=== PATIENT | male | born 1985 | race Caucasian/White ===

== ENCOUNTER 2017-08-20 13:40 | Emergency (ER) | payer BC ==
[~2017-08-20] VITALS: Ht 177.8 cm; Wt 179.8 kg
[~2017-08-20 13:40] MED LIST: NOHOMEMEDS; PROTONIX40 MG PO
[2017-08-20 14:09] LABS: HEMATOCRIT 41.2 % (38.0-50.0); HEMOGLOBIN 14.1 G/DL (12.5-16.6); MCH 29.9 PG (29.0-34.0); MCHC 34.2 G/DL (30.0-36.0); MCV 87.5 FL (86-99); PLATELET COUNT 237 K/uL (156-360); RBC DIS.WIDTH-SD 38.6 % (39-53); RED BLOOD COUNT 4.71 M/uL (4.00-5.50); WHITE BLOOD COUNT 8.6 K/uL (4.1-10.2)
[2017-08-20 14:20] LABS: CHLORIDE 104 mEq/L (99-109); POTASSIUM 4.1 mEq/L (3.7-5.4); SODIUM 139 mEq/L (136-147)
[2017-08-20 14:22] LABS: GLUCOSE 117 mg/dL (70-99)
[2017-08-20 14:26] LABS: CREATININE 0.9 mg/dL (0.6-1.3); GFR ESTIMATE (CALCULATED) > 59 mL/min/ (58.99-99999); UREA NITROGEN (BUN) 19 mg/dL (9-23)
[2017-08-20 14:30] LABS: TROP-I INTERPRETATION NEGATIVE; TROPONIN-I < 0.01 ng/mL (0.0-0.30)
[2017-08-20 16:41] LABS: ALBUMIN 4.2 g/dL (3.2-4.8)
[2017-08-20 16:44] LABS: TOTAL PROTEIN 6.9 g/dL (6.4-8.3)
[2017-08-20 16:46] LABS: TOTAL BILIRUBIN 0.4 mg/dL (0.0-1.0)
[2017-08-20 16:47] LABS: ALKALINE PHOSPHATASE 79 IU/L (3-129)
[2017-08-20 16:49] LABS: AST (GOT) 19 IU/L (2-34); DIRECT BILIRUBIN 0.2 mg/dL (0.0-0.3)
[2017-08-20 16:50] LABS: ALT (GPT) 32 IU/L (3-49); LIPASE 14 U/L (1.0-51.0)
[2017-08-20 18:11] LABS: TROP-I INTERPRETATION NEGATIVE; TROPONIN-I < 0.01 ng/mL (0.0-0.30)
[2017-08-20 18:29] VITALS: BP 128/88
== END 2017-08-20 18:30 | disposition home or self-care (01) ==
LOC: EME 13:40 → RME 13:40
PROVIDERS: Nurse Practitioner Family
DX: R07.9 Chest pain, unspecified (principal); K21.9 Gastro-esophageal reflux disease without esophagitis; I10 Essential (primary) hypertension; E66.01 Morbid (severe) obesity due to excess calories; Z68.43 Body mass index [BMI] 50.0-59.9, adult; G47.30 Sleep apnea, unspecified; Z88.5 Allergy status to narcotic agent
CPT/HCPCS: 71046; 80048; 80076; 83690; 84484; 85027; 93005; 99281; 99284